=== PATIENT | male | born 1945 | race Caucasian/White ===

== ENCOUNTER → 2016-08-31 | Outpatient (CLI) | payer MEDICARE, MEDICAID ==
--- NOTE | 2016-09-03 08:05 | MRI ---
EXAM DESCRIPTION: MR ABDOMEN WITHOUT IV CONTRAST CLINICAL HISTORY: 71 y/o M, CHOLECYSTIS COMPARISON: CT performed on February 09, 2016 TECHNIQUE: Multiplanar multisequence images of the abdomen were obtained without gadolinium contrast including MRCP images and 3D reconstructed series. FINDINGS: There is a small gallstone in the neck of the gallbladder without pericholecystic fluid or inflammation. There is no choledocholithiasis. No intra or extrahepatic biliary duct dilation. The cystic duct is not dilated. The pancreatic duct is unremarkable. There is no peripancreatic fluid or pancreatic mass. The left kidney is not identified and is either developmentally or surgically absent. There is no pleural effusion or ascites. No adrenal nodule. The spleen is not enlarged. No focal liver lesion. IMPRESSION: Cholelithiasis, but no choledocholithiasis, biliary duct dilation, ascites or additional abnormality related to provided history of cholecystitis. Electronically signed by: Ozzy Casiano DO 09/03/2016 08:04
== END ==
LOC: MRI 14:06
PROVIDERS: ATTEND Orthopaedic Surgery
DX: K81.1 Chronic cholecystitis (principal)

== ENCOUNTER → 2016-09-19 | Outpatient (CLI) | payer MEDICARE, MEDICAID ==
--- NOTE | 2016-09-19 12:33 | CT ---
EXAM DESCRIPTION: Abdoment/Pelvis w/o Contrast CLINICAL HISTORY: ABDOMINAL PAIN COMPARISON: None. TECHNIQUE: CT of the abdomen and pelvis was performed . Multiple axial images and multiplanar reconstructions were generated. FINDINGS: Lung bases are clear. Multilevel degenerative change of the lumbar spine. Old superior endplate fracture of L1. Cholelithiasis again noted. Calcified lymph nodes noted within the region of the common bile duct. The liver is normal in density. The liver is normal in size. The spleen is unremarkable. Patient is again status post left nephrectomy. No recurrence within the surgical bed. Bilateral adrenal glands and the right kidney are unremarkable. The pancreas is unremarkable. Small bowel is nonobstructed. Diverticulosis is noted. Prostatomegaly is unchanged. Urinary bladder is grossly unremarkable. The appendix is normal. IMPRESSION: 1. There may be stones noted within the cystic duct of the gallbladder which could result in right upper quadrant pain. At this time there is no CT evidence of acute cholecystitis. 2. Patient is once again status post left nephrectomy. No evidence of recurrence within the surgical bed. 3. Remaining study is unchanged. Electronically signed by: Brian Whitney MD 09/19/2016 12:32 PM CDT
--- NOTE | 2016-09-19 12:34 | RAD ---
EXAM DESCRIPTION: Chest,2 Views CLINICAL HISTORY: 71 yearsMale, SOB COMPARISON: May 2011 IMPRESSION: Heart size and pulmonary vascularity are within normal limits. There is no airspace consolidation, pleural effusion, or pneumothorax. No acute osseous abnormality. Electronically signed by: Brian Whitney MD 09/19/2016 12:32 PM CDT
== END | disposition home or self-care (01) ==
LOC: CT 09:15
PROVIDERS: ATTEND Internal Medicine Hematology & Oncology
DX: D75.1 Secondary polycythemia (principal); R10.31 Right lower quadrant pain

== ENCOUNTER → 2016-10-16 | Outpatient (CLI) | payer MEDICARE, MEDICAID ==
--- NOTE | 2016-10-16 16:44 | CT ---
EXAM DESCRIPTION: Abdomen/Pelvis w/Contrast CLINICAL HISTORY: ABDOMINAL PAIN COMPARISON: 09/19/2016 TECHNIQUE: CT of the abdomen and pelvis was performed following intravenous contrast. Multiple axial images and multiplanar reconstructions were generated. FINDINGS: Lung bases: The visualized lung bases are clear. Solid organs: Operative changes of a left nephrectomy are again demonstrated. Cholelithiasis. Right upper quadrant calcifications are again demonstrated, and likely represent calcified nodes. There may also be calculi within the cystic duct. No overt CT evidence for acute cholecystitis. The spleen, pancreas, right kidney, and adrenal glands are unremarkable. Gastrointestinal: The stomach and small intestine are normal. Extensive colonic diverticulosis is present without CT evidence for diverticulitis. The appendix is normal. No free fluid or free air. Vascular: Mild calcific plaque in the abdominal aorta and its major branches. Lymph nodes: No pathologically enlarged lymph nodes are present by CT size criteria. Several scattered mesenteric and retroperitoneal nodes are again demonstrated which remain less than 1 cm in short axis. Musculoskeletal and soft tissues: No destructive osseous lesions are present. Remote fracture of L1 is again demonstrated. Urinary bladder and pelvic organs: The urinary bladder is normal. The prostate remains enlarged. IMPRESSION: 1. No acute abdominal or pelvic CT findings. 2. Cholelithiasis with questionable calculus in the cystic duct. If there is concern for cholecystitis, right upper quadrant ultrasound could further evaluate. 3. Extensive colonic diverticulosis without CT evidence for diverticulitis. 4. Left nephrectomy changes. 5. Other stable findings as above. Electronically signed by: Ham Bardales MD 10/16/2016 4:44 PM CDT
== END | disposition home or self-care (01) ==
LOC: CT 10:18
DX: K80.20 Calculus of gallbladder without cholecystitis without obstruction (principal); K57.30 Diverticulosis of large intestine without perforation or abscess without bleeding

== ENCOUNTER → 2017-09-05 | Outpatient (CLI) | payer MEDICARE, MEDICAID ==
--- NOTE | 2017-09-05 10:00 | RAD ---
EXAM: Knee,Right Complete HISTORY: KNEE PAIN COMPARISON: Radiographs from October 16, 2013 TECHNIQUE: Three radiographic views of knee FINDINGS: Unremarkable bony alignment in the knee joint. No acute fracture nor dislocation nor inflammatory bony erosion. Slightly pronounced degenerative narrowing of medial compartment is unchanged since prior study. No suprapatellar effusion or other soft tissue abnormality around the joint. IMPRESSION: No bony injury identified in right knee. Degenerative changes in the medial knee compartment. Electronically signed by: Bello Brambila MD 09/05/2017 9:59 AM [facility]
--- NOTE | 2017-09-05 10:01 | RAD ---
EXAM DESCRIPTION: Pelvis CLINICAL HISTORY: Hip pain COMPARISON: None TECHNIQUE: Frontal view of pelvis FINDINGS: Bony cortices in pelvis and both hip joints are maintained without focal dehiscence nor fracture. No bony dislocation in either hip joint. Femoral head contour is maintained without collapse nor changes of avascular necrosis in either hip. No soft tissue abnormality clearly identified around either hip joint. Nonobstructive bowel gas pattern in lower abdomen and in pelvis. IMPRESSION: No obvious bony injury in the pelvis nor in either hip joint. Electronically signed by: Bello Brambila MD 09/05/2017 10:00 AM [facility]
== END ==
LOC: RAD 09:10
PROVIDERS: ATTEND Orthopaedic Surgery
DX: M25.561 Pain in right knee (principal); M25.551 Pain in right hip; Z01.818 Encounter for other preprocedural examination

== ENCOUNTER 2017-10-22 05:44 | Inpatient (IN) | payer MEDICARE, MEDICAID ==
--- NOTE | 2017-09-28 13:27 | HP ---
CHIEF COMPLAINT: Right knee pain. HISTORY OF PRESENT ILLNESS: Mr. Rubio has had knee pain for a very long period and has failed conservative measures. He has had partial knee replacement on the left and is requesting that we consider that on the right. Mr. Rubio has had difficulty with his activities of daily living and he has failed conservative measures which have included injections and physical therapy. He walks with an antalgic gait and has to occasionally use assistive devices. Because of his ongoing pain and failure of conservative measures, and its effect on his daily life which is limited from baseline, he has requested operative intervention. After discussing the risks, benefits, and alternatives to that he has given informed consent for that. PAST SURGICAL HISTORY: 1. Nephrectomy. 2. Herniorrhaphy. 3. Bilateral hand surgery. CURRENT MEDICATIONS: 1. Aspirin. 2. Ondansetron. 3. Zolpidem. 4. Gabapentin. 5. Hydrocodone. 6. Furosemide. 7. Spironolactone. 8. Nitroglycerin. 9. Pravastatin. 10. ProAir. 11. Clonazepam. 12. Clonidine. 13. Multivitamins. 14. Doxycycline. ALLERGIES: NO KNOWN DRUG ALLERGIES. CODE STATUS: DO NOT RESUSCITATE. IMMUNIZATIONS: Up to date. FAMILY HISTORY: None pertinent to today's complaints. SOCIAL HISTORY: He does not drink, smoke or use any illicit drugs. REVIEW OF SYSTEMS: Negative except as indicated in the History of Present Illness. PHYSICAL EXAMINATION: VITAL SIGNS: Blood pressure 107/75, pulse 74. Height 5' 8", weight 206. MENTAL STATUS: The patient is awake, alert, and is able to give a good history and participate in the physical. The patient is oriented to person, place and time. SKIN: Normal tone and turgor. HEENT: Normocephalic, atraumatic. Pupils equal, round and reactive. Mucosal membranes are moist. NECK: Normal range of motion. No thyromegaly, no lymphadenopathy. CHEST: Normal respiratory excursion. CARDIAC: Regular rate and rhythm. No murmurs, rubs or gallops. MUSCULOSKELETAL: The bilateral upper extremities show full active range of motion. He has intact sensation and they are warm and well perfused. There is no crepitus. Strength is 5/5. He has no deformities. The left lower extremity shows full range of motion in the hip. He has a well- healed wound on the anteromedial aspect of the knee. He does maintain full extension with flexion to about 120 degrees. There is no swelling. Strength is 5/5. The right lower extremity shows full range of motion in the hip. He has full extension of the knee in flexion to about 120 degrees, but he has crepitus and severe pain. He does have obvious varus deformity. He has minor effusion. Sensation is intact. He does not have any distinct varus, valgus, anterior or posterior laxity. He does walk with an antalgic gait secondary to discomfort on the right side. X-RAYS: X-rays show advanced arthritis. ASSESSMENT: 1. Arthritis. PLAN: The plan at this point is for total knee arthroplasty. Mr. Rubio has failed conservative measures and has requested operative intervention. After discussing the risks, benefits, and alternatives to that, he has given informed consent for that. #[id number] [facility]
[2017-10-22] MEDS ORDERED: LACTATED RINGERS 1,000 ML ONE ×2 (05:58→06:34)
[2017-10-22] MEDS ORDERED: SODIUM CHL 0.9% 100ML MINI-BAG 100 ML IVPB ONE (05:58)
[2017-10-22] MEDS ORDERED: VANCOMYCIN HCL INJ 1,000 MG VIAL IVPB ONE ×4 (05:59→17:26)
[2017-10-22] MEDS ORDERED: ceFAZolin SODIUM 1 GM VIAL ONE ×2 (05:59→06:43)
[2017-10-22] MEDS ORDERED: TRANEXAMIC ACID 1,000 MG/10 ML VIAL ONE ×2 (05:59→08:05)
[2017-10-22] MEDS ORDERED: SODIUM CHLORIDE 0.9% 250ML 250 ML ONE ×2 (05:59→17:26)
[2017-10-22] MEDS ORDERED: fentaNYL CITRATE INJ 50 MCG/ML AMP ONE ×2 (06:34→10:41)
[2017-10-22] MEDS ORDERED: BUPIVACAINE 0.25% W/EPI 50 ML VIAL INJ ONE (06:42)
[2017-10-22] MEDS ORDERED: MORPHINE SULFATE *EPIDURAL* 0.5 MG/ML VIAL ONE (06:44)
[2017-10-22] MEDS ORDERED: SODIUM CHLORIDE 0.9% (FLUSH) 10 ML SYG IV PRN (06:47)
[2017-10-22] MEDS ORDERED: MORPHINE SULFATE INJ 10 MG/ML VIAL IM PRN (06:47)
[2017-10-22] MEDS ORDERED: ONDANSETRON INJ 4 MG/2 ML VIAL IV PRN (06:47)
[2017-10-22] MEDS ORDERED: ACETAMINOPHEN 325 MG TAB PO PRN (06:47)
[2017-10-22] MEDS ORDERED: traMADol HCL 50 MG TAB PO PRN (06:47)
[2017-10-22] MEDS ORDERED: NALOXONE HCL INJ 0.4 MG/ML VIAL IV PRN (06:47)
[2017-10-22] MEDS ORDERED: MAGNESIUM HYDROXIDE 30 ML UD PO PRN (06:47)
[2017-10-22] MEDS ORDERED: BENZOCAINE-MENTH LOZ (CEPACOL) 1 EA LOZ MT PRN (06:47)
[2017-10-22] MEDS ORDERED: ALUMINUM & MAGNESIUM HYDROXIDE 30 ML UD PO PRN (06:47)
[2017-10-22] MEDS ORDERED: TRANEXAMIC ACID 1,000 MG/10 ML VIAL IV ONE (06:47)
[2017-10-22] MEDS ORDERED: ZOLPIDEM TARTRATE 5 MG TAB PO PRN (06:47)
[2017-10-22] MEDS ORDERED: MORPHINE SULFATE INJ 10 MG/ML VIAL IV PRN (06:47)
[2017-10-22] MEDS ORDERED: PROMETHAZINE HCL INJ 25 MG in SODIUM CHLORIDE 0.9% 50ML 50 ML IVPB PRN (06:47)
[2017-10-22] MEDS ORDERED: PROMETHAZINE HCL INJ 12.5 MG in SODIUM CHLORIDE 0.9% 50ML 50 ML IVPB PRN (06:47)
[2017-10-22] MEDS ORDERED: TRANEXAMIC ACID INJ 1,000 MG in SODIUM CHLORIDE 0.9% 100ML 100 ML IVPB ONE (06:47)
[2017-10-22] MEDS ORDERED: ACETAMINOPHEN 500 MG TAB PO PRN ×2 (06:47→22:33)
[2017-10-22] MEDS ORDERED: BISACODYL SUPPOSITORY 10 MG PR PRN (06:47)
[2017-10-22] MEDS ORDERED: TEMAZEPAM 15 MG CAP PO PRN (06:47)
[2017-10-22] MEDS ORDERED: MORPHINE PCA 1 MG/ML 100 ML BAG IVPB SCH (07:00)
[2017-10-22] MEDS ORDERED: SODIUM CHLORIDE 0.9% 100ML 100 ML IVPB ONE (08:06)
[2017-10-22] MEDS ORDERED: PROPOFOL 200 MG/20 ML VIAL IV ONE (10:00)
[2017-10-22] MEDS ORDERED: MORPHINE SULFATE INJ 10 MG/ML VIAL IV ONE (10:25)
--- NOTE | 2017-10-22 11:41 | RAD ---
EXAM DESCRIPTION: Knee,Right 2 or More Views CLINICAL HISTORY: 72 years, Male, TKA COMPARISON: None TECHNIQUE: 2 views of the right knee FINDINGS: No fracture or dislocation. Total right knee arthroplasty is noted with air in the soft tissues and joint space. No complicating fracture. Lateral view shows normal position of the patella. No patellar spurring or enthesopathy. IMPRESSION: Total right knee arthroplasty with no complicating fracture. Electronically signed by: William Hutton MD 10/22/2017 11:39 AM CDT
[2017-10-22] MEDS: IV SET AND CAP CHANGE INJ INJ SCH (12:17)
[2017-10-22] MEDS: CELECOXIB 100 MG CAP PO SCH (12:19)
[2017-10-22] MEDS: MAGNESIUM OXIDE 400 MG TAB PO SCH (12:20)
[2017-10-22] MEDS: DEX 5% W/NACL 0.45% 1000ML 1,000 ML IVS PRN (14:05)
[2017-10-22] MEDS: HYDROcodone 10MG/APAP 325MG 1 EA TAB PO PRN ×2 (14:06→22:58)
[2017-10-22] MEDS: CYCLOBENZAPRINE HCL 10 MG TAB PO PRN (14:07)
[2017-10-22] MEDS ORDERED: ALBUTEROL SULFATE 2.5 MG/3 ML VIAL NEB PRN (15:36)
[2017-10-22] MEDS ORDERED: ceFAZolin SODIUM 2 GRAMS PREMI 50 ML IVPB ONE ×2 (16:46→20:33)
[2017-10-22] MEDS: ceFAZolin SODIUM 2 GRAMS PREMI 2 GM in PREMIX BAG 1 BAG IVPB SCH ×2 (16:54→23:40)
[2017-10-22] MEDS: GABAPENTIN 300 MG CAP PO SCH ×2 (16:54→21:39)
[2017-10-22] MEDS: VANCOMYCIN HCL INJ 1,000 MG in SODIUM CHLORIDE 0.9% 250ML 250 ML IVPB SCH (17:30)
[2017-10-22] MEDS: ALBUTEROL SULFATE 2.5 MG/3 ML VIAL NEB SCH (21:00)
[2017-10-22] MEDS: PRAVASTATIN SODIUM 20 MG TAB PO SCH (21:39)
[2017-10-22] MEDS: DOCUSATE CALCIUM 240 MG CAP PO SCH (21:39)
[2017-10-22] MEDS: ENOXAPARIN SODIUM 30 MG/0.3 ML SYG SUBCU SCH (21:39)
[2017-10-23] MEDS: HYDROcodone 10MG/APAP 325MG 1 EA TAB PO PRN ×2 (04:01→21:32)
[2017-10-23] MEDS ORDERED: SODIUM CHLORIDE 0.9% 250ML 250 ML ONE (04:12)
[2017-10-23] MEDS ORDERED: VANCOMYCIN HCL INJ 1,000 MG VIAL IVPB ONE (04:12)
[2017-10-23] MEDS: VANCOMYCIN HCL INJ 1,000 MG in SODIUM CHLORIDE 0.9% 250ML 250 ML IVPB SCH (05:49)
[2017-10-23] MEDS ORDERED: ceFAZolin SODIUM 2 GRAMS PREMI 50 ML IVPB ONE (07:49)
[2017-10-23] MEDS: ALBUTEROL SULFATE 2.5 MG/3 ML VIAL NEB SCH ×2 (08:36→20:55)
[2017-10-23] MEDS: GABAPENTIN 300 MG CAP PO SCH ×4 (09:00→21:31)
[2017-10-23] MEDS: hydroCHLOROthiazide 12.5 MG CAP PO SCH (09:00)
[2017-10-23] MEDS: MAGNESIUM OXIDE 400 MG TAB PO SCH (09:00)
[2017-10-23] MEDS: CELECOXIB 100 MG CAP PO SCH (09:01)
[2017-10-23] MEDS: ceFAZolin SODIUM 2 GRAMS PREMI 2 GM in PREMIX BAG 1 BAG IVPB SCH (09:01)
[2017-10-23] MEDS: FUROSEMIDE 40 MG TAB PO SCH (09:01)
[2017-10-23] MEDS: SPIRONOLACTONE 25 MG TAB PO SCH (09:02)
[2017-10-23] MEDS: ENOXAPARIN SODIUM 30 MG/0.3 ML SYG SUBCU SCH ×2 (09:02→21:31)
[2017-10-23] MEDS: TAFLUPROST BOTH_EYES SCH (09:12)
[2017-10-23] MEDS ORDERED: POTASSIUM CHLORIDE 20 MEQ TAB ONE (09:40)
[2017-10-23] MEDS ORDERED: FLUCONAZOLE IV 100 ML IVPB ONE (09:40)
--- NOTE | 2017-10-23 09:42 | PN ---
DATE: 10/22/17 POSTOPERATIVE CHECK SUBJECTIVE: He is doing well and is resting. He has good pain control right now. OBJECTIVE: Afebrile. Vital signs stable. Dressing is clean, dry and intact. ASSESSMENT: Status post total knee arthroplasty. PLAN: The plan at this point is for him to begin weight-bearing as tolerated. We will also begin CPM and progress as tolerated. #[id number] [facility]
[2017-10-23] MEDS: CYCLOBENZAPRINE HCL 10 MG TAB PO PRN (09:46)
[2017-10-23] MEDS: SULFA/TRIMETH 800/160 (DS) TAB 1 EA TAB PO SCH ×2 (09:47→21:31)
--- NOTE | 2017-10-23 09:47 | OP ---
DATE OF PROCEDURE: 10/22/17 PREOPERATIVE DIAGNOSIS: 1. Osteoarthritis of the knee. POSTOPERATIVE DIAGNOSIS: 1. Osteoarthritis of the knee. PROCEDURE: 1. Total knee arthroplasty. SURGEON: Conner Prater MD. DEVICE REPAIR TECHNICIAN: Jostin Mancilla CST, SA-C. ANESTHESIA: General. COMPLICATIONS: None. FINDINGS: Severe osteoarthritis. INDICATION: Mr. Rubio has a long history of knee pain. He has had contralateral unicondylar knee arthroplasty. He has had failure of conservative measures on the right and therefore has requested operative intervention. After discussing the risks, benefits and alternatives to that, the patient has given informed consent for total knee arthroplasty. PROCEDURE: The patient was brought to the Operating Room and placed in supine position. General anesthesia was induced and the patient's leg was sterilely prepped and draped. Following prepping and draping, the distal femur was exposed and using an intramedullary guide, the distal femoral cut was made. The appropriate sized cutting block was measured, pinned into place, and the anterior, posterior, and chamfer cuts were made. The ACL was transected and the tibia was subluxed. Both the medial and lateral menisci were removed. An intramedullary guide was used to make the proximal tibial cut. The appropriate sized base plate was placed and a trial polyethylene was placed. The trial femur was placed, the knee was reduced, and the knee was taken through a range of motion. The knee was stable in anterior, posterior, varus and valgus stress. The patella tracked anatomically without evidence of subluxation or dislocation. After trialing, the trial components were removed and the bony surfaces were thoroughly irrigated with saline. Following irrigation, the surfaces were dried and the final components were cemented into place. The excess cement was removed and the remaining cement was allowed to cure. The knee was again taken through a range of motion to confirm stability. The wound was then irrigated with saline and closure was performed using PDS to approximate the arthrotomy followed by closure of the subcutaneous tissues with a combination of running and interrupted Monocryl sutures. Sterile dressing was placed. The patient was awoken from anesthesia and taken to Recovery. POSTOPERATIVE INSTRUCTIONS: The patient will be weight-bearing as tolerated on postoperative day 1. COMPONENTS: [employer] Triathlon knee, size 6 femur, size 6 tibia, 11 mm insert. #[id number] [facility]
--- NOTE | 2017-10-23 10:23 | RAD ---
EXAM DESCRIPTION: Chest,1 View CLINICAL HISTORY: Fever COMPARISON: None available FINDINGS: The cardiomediastinal silhouette is unremarkable. Subsegmental atelectasis or scarring is noted at both lung bases, but no airspace consolidation or pleural effusion is identified. The bronchovascular markings are within normal limits, and the lungs are not hyperinflated. There is no pneumothorax or acute fracture. IMPRESSION: Bibasilar subsegmental atelectasis or scarring, but no convincing evidence of pneumonia or other intrathoracic abnormality to explain patient symptoms. If symptoms persist or worsen, PA and lateral chest radiograph recommended. Electronically signed by: Ozzy Casiano MD 10/23/2017 10:22 AM CDT
[2017-10-23] MEDS: INSULIN LISPRO 100 UNITS/ML PEN SUBCU SCH (21:00)
[2017-10-23] MEDS: DOCUSATE CALCIUM 240 MG CAP PO SCH (21:31)
[2017-10-23] MEDS: PRAVASTATIN SODIUM 20 MG TAB PO SCH (21:31)
[2017-10-23] MEDS: DEX 5% W/NACL 0.45% 1000ML 1,000 ML IVS PRN (21:32)
[2017-10-23] MEDS ORDERED: GLUCAGON INJ 1 MG VIAL SUBCU PRN (21:33)
[2017-10-23] MEDS ORDERED: DEXTROSE 50% 25 GM/50 ML SYG IV PRN (21:33)
[2017-10-24] MEDS: HYDROcodone 10MG/APAP 325MG 1 EA TAB PO PRN ×4 (02:44→20:59)
[2017-10-24] MEDS: INSULIN LISPRO 100 UNITS/ML PEN SUBCU SCH ×4 (08:15→21:24)
[2017-10-24] MEDS: CELECOXIB 100 MG CAP PO SCH (08:33)
--- NOTE | 2017-10-24 08:37 | CONS ---
SUPERVISING PHYSICIAN: Chris Malik MD DATE OF CONSULTATION: 10/22/17 CHIEF COMPLAINT: Right knee pain. HISTORY OF PRESENT ILLNESS: This is a 72-year-old male patient who has had a long history of complaints of right knee pain. He has had a partial left knee replacement in the past. He has had a very difficult time with his activities of daily living. He failed conservative measures that have included injections and physical therapy. He actually has had problems with his gait and has required assistive devices. Due to his ongoing pain and failed conservative measures, he requested Dr. Conner Prater, orthopedic surgeon, to do a right total knee arthroplasty. Today, I am seeing the patient postoperatively after his right total knee arthroplasty. PAST MEDICAL HISTORY: 1. Diabetes mellitus, type 2. 2. 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 3. Cerebrovascular accident in 2007. 4. Gastroesophageal reflux disease. 5. History of myocardial infarction. PAST SURGICAL HISTORY: 1. Nephrectomy. 2. Herniorrhaphy. 3. Bilateral hand surgery. OUTPATIENT MEDICATIONS: Per the EMR and awaiting verification. ALLERGIES: NO KNOWN DRUG ALLERGIES. SOCIAL HISTORY: The patient quit smoking approximately 10 years ago. He drinks alcoholic beverages on very rare occasion and denies any illicit drug use. He lives in [place]. Dr. Ro is his primary care physician. REVIEW OF SYSTEMS: Negative except as per history of present illness. PHYSICAL EXAMINATION: VITAL SIGNS: Temperature 97.4. Pulse 72. Blood pressure 135/80. Respiratory rate 18. O2 saturation 94% on room air. GENERAL: This is a 72-year-old male who is lying in his hospital bed. He is in no acute distress. HEENT: Normocephalic, atraumatic. Pupils are equal and reactive. Oropharynx is clear. NECK: Supple without mass. RESPIRATORY: Essentially clear to auscultation bilaterally. CHEST: There is equal rise and fall of the chest with inspiration and expiration. CARDIOVASCULAR: Regular rate and rhythm. GASTROINTESTINAL: Abdomen is soft, nondistended, nontender. Bowel sounds are hypoactive. EXTREMITIES: No cyanosis, clubbing or edema. Bilateral pedal pulses are palpable at +2. There is a dressing to his right knee that is dry and intact. He has an Iceman in place. NEUROLOGIC: He is lethargic. He opens his eyes. He answers some simple yes/no questions appropriately. LABORATORY: Preoperative labs show WBC 8.3, hemoglobin 13.8, hematocrit 41.1, platelet count 291. Sodium 134, potassium 4.4, chloride 99, carbon dioxide 25, BUN 28, creatinine 1.11. Glucose 102, serum osmolality 273.9. Urinalysis showed a small amount of urine blood with small amount of urine leukocyte esterase, 5 to 10 urine RBCs and 5 to 10 urine WBCs. All other labs and films have been reviewed via the EMR. ASSESSMENT: 1. Osteoarthritis of the right knee. He has failed conservative measures. He is status post right total knee arthroplasty per Dr. Prater, orthopedic surgeon, postoperative day #0. 2. Hypertension. 3. Diabetes mellitus, type 2. 4. Gastroesophageal reflux disease. PLAN: We will continue present supportive care. Orthopedic issues will be per Dr. Conner Prater, orthopedic surgeon. He will start his physical therapy tomorrow. I have resumed his home medications. I will encourage good pulmonary hygiene including incentive spirometry. We will continue to monitor the patient closely and follow as needed. #[id number] [facility]
--- NOTE | 2017-10-24 09:23 | PN ---
SUPERVISING PHYSICIAN: Chris Malik MD DATE: 10/23/17 SUBJECTIVE: The patient is lying in his hospital bed. He is somewhat lethargic. He does open his eyes and answers some simple questions. He denies any nausea, vomiting, diarrhea or chest pain. He complains of his right leg hurting. OBJECTIVE: VITAL SIGNS: T-max 24 hours 101.3. Pulse rate got as high as 99, it is now 86. Blood pressure 124/86. Respiratory rate 20. O2 saturation 94% on room air. RESPIRATORY: Essentially clear to auscultation bilaterally, somewhat diminished at the bases. CARDIAC: Regular rate and rhythm. GASTROINTESTINAL: Abdomen is soft, nondistended, nontender. Bowel sounds are positive. EXTREMITIES: No cyanosis, clubbing or edema. Bilateral pedal pulses are palpable at +2. Dressing to his right knee is dry and intact. His right leg is in the CPM machine. NEUROLOGIC: He is slightly lethargic. He opens his eyes and answers questions appropriately, but goes back to sleep quickly. LABORATORY: Hemoglobin 12.9, hematocrit 38.5. Blood sugars have run between 122 and 131. Urine culture is pending. Preliminary blood cultures are negative to date. Influenza A and B flu swab by PCR are both negative. Chest x -ray per radiologic interpretation shows bibasilar subsegmental atelectasis or scarring, but no convincing evidence of pneumonia or other intrathoracic abnormality to explain the patient's symptoms. All other labs and films have been reviewed via the EMR. ASSESSMENT: 1. Osteoarthritis of the right knee, failed conservative measures, status post right total knee arthroplasty per Dr. Prater, orthopedic surgeon, postoperative day #1. 2. Question urinary tract infection. Urine cultures pending. 3. Elevated temperature, may be due to atelectasis due to the patient's poor compliance postoperatively, but cannot rule out urinary tract infection as a possible source of fever. 4. Hypertension. 5. Diabetes mellitus, type 2. 6. Gastroesophageal reflux disease. PLAN: We will continue present supportive care. Orthopedic issues will be per Dr. Prater. He is participating in physical therapy although at very slow pace at this time. He is very lethargic and we will need to monitor that close. I have ordered Respiratory to continue with aggressive pulmonary hygiene. I have also ordered accuchecks with sliding scale due to his diabetes. We will monitor his cultures closely. We will continue to monitor the patient closely and follow as needed. Dr. Malik is the collaborating physician and available for consultation. #[id number] [facility]
[2017-10-24] MEDS: FUROSEMIDE 40 MG TAB PO SCH (10:04)
[2017-10-24] MEDS: ENOXAPARIN SODIUM 30 MG/0.3 ML SYG SUBCU SCH ×2 (10:04→21:12)
[2017-10-24] MEDS: CYCLOBENZAPRINE HCL 10 MG TAB PO PRN ×2 (10:05→22:08)
[2017-10-24] MEDS: SPIRONOLACTONE 25 MG TAB PO SCH (10:05)
[2017-10-24] MEDS: SULFA/TRIMETH 800/160 (DS) TAB 1 EA TAB PO SCH ×2 (10:05→21:12)
[2017-10-24] MEDS: MAGNESIUM OXIDE 400 MG TAB PO SCH (10:05)
[2017-10-24] MEDS: hydroCHLOROthiazide 12.5 MG CAP PO SCH (10:06)
[2017-10-24] MEDS: GABAPENTIN 300 MG CAP PO SCH ×4 (10:06→20:59)
[2017-10-24] MEDS: SODIUM CHLORIDE 0.9% (FLUSH) 10 ML SYG IV SCH ×2 (10:07→21:01)
[2017-10-24] MEDS: ALBUTEROL SULFATE 2.5 MG/3 ML VIAL NEB SCH ×2 (10:20→19:39)
[2017-10-24] MEDS: TAFLUPROST BOTH_EYES SCH (10:54)
--- NOTE | 2017-10-24 13:18 | PN ---
DATE: 10/23/17 SUBJECTIVE: Mr. Rubio is doing well. He has a little bit of difficulty with pain control as he is chronic narcotic from a pain management physician. Otherwise, he has no complaints. OBJECTIVE: Afebrile. Vital signs stable. Dressing is clean, dry and intact. ASSESSMENT: Status post total knee arthroplasty. PLAN: He will continue with physical therapy for weight-bearing as tolerated. [facility][id number] [facility]
--- NOTE | 2017-10-24 13:19 | PN ---
DATE: 10/24/17 SUBJECTIVE: Mr. Rubio is doing well. He has no acute complaints. OBJECTIVE: Afebrile. Vital signs stable. Wound is clean. There are no signs or symptoms of infection. ASSESSMENT: Status post total knee arthroplasty. PLAN: He will continue with weight-bearing as tolerated. [facility][id number] [facility]
[2017-10-24] MEDS: PRAVASTATIN SODIUM 20 MG TAB PO SCH (21:00)
[2017-10-24] MEDS: DOCUSATE CALCIUM 240 MG CAP PO SCH (21:00)
[2017-10-25] MEDS ORDERED: PANTOPRAZOLE SODIUM TAB 40 MG PO ONE (04:36)
[2017-10-25] MEDS: HYDROcodone 10MG/APAP 325MG 1 EA TAB PO PRN ×3 (06:20→15:22)
[2017-10-25] MEDS: CYCLOBENZAPRINE HCL 10 MG TAB PO PRN ×2 (06:21→14:41)
[2017-10-25] MEDS: INSULIN LISPRO 100 UNITS/ML PEN SUBCU SCH ×3 (07:30→17:00)
--- NOTE | 2017-10-25 08:09 | PN ---
DATE: 10/24/17 SUPERVISING PHYSICIAN: Chris Malik MD SUBJECTIVE: The patient is lying in his hospital bed. No complaints of nausea , vomiting, diarrhea or constipation. Has some pain in his right knee but it has improved since yesterday. The patient inadvertently had a CT scan of the abdomen and pelvis that showed a gallstone in the cystic duct. He did say he had some pain occasionally in that right upper quadrant and he has a history of gallstones. He agreed to see Dr. Martin tomorrow. OBJECTIVE: Vital Signs: Temperature 98.1, heart rate 100, blood pressure 127/ 71, respiratory rate 20, 02 saturation 9% on two liters nasal cannula. CHEST: Essentially clear to auscultation bilaterally. CARDIAC: Regular rate and rhythm. GI: Abdomen soft. He is slightly tender to the right upper quadrant. There is no rebound tenderness or guarding. Bowel sounds are positive. EXTREMITIES: Dressing to his right knee is dry and intact. There is some slightly erythema to the right knee but there is no swelling. Bilateral pedal pulses are palpable +2. NEURO: He is awake, alert, and oriented x3. LABORATORY: Hemoglobin 12.9 with hematocrit 38.5. Blood sugars have run from between 131 and 149. His preliminary blood cultures show no growth after 24 hours. Preliminary urine cultures show no growth after 24 hours. All other labs and films have been reviewed via the EMR. RADIOLOGY: A CT scan on the patient was done inadvertently and the report is not available at this time but per radiologist report, the patient does have a gallstone in the cystic duct as well as some prostatitis and thickened wall of the bladder. Will review report once available. ASSESSMENT: 1. Osteoarthritis of the right knee, failed conservative measures, status post right total knee arthroplasty per Dr. Conner Prater, orthopedic surgeon, postoperative day #2. 2. Urinary tract infection. Urine cultures pending. 3. Elevated temperature, may be due to atelectasis but cannot rule out urinary tract infection as a possible source of fever. 4. Cholelithiasis. 5. Hypertension. 6. Diabetes mellitus, type 2. 7. Gastroesophageal reflux disease. PLAN: We will continue present supportive care. Orthopedic issues will be per Dr. Prater. He will continue with physical therapy for strengthening and conditioning. I continued to encourage good pulmonary hygiene. Discussed his CT results as they were reported to me and he is aware of his enlarged prostate as well as his history of gallstones. He would very much like to see Dr. Martin so I have made patient n.p.o. for in the morning. He with have a gallbladder ultrasound. I will also call Dr. Marin Ro, his primary care physician with results of his CT scan once they are available so he can have close followup. It is to be noted that this CT scan was done inadvertently and the patient should not be charged for the CT scan. We will continue to monitor the patient closely and follow as needed. Dr. Malik is the collaborating physician available for consultation. [facility][id number] [facility]
[2017-10-25] MEDS: ALBUTEROL SULFATE 2.5 MG/3 ML VIAL NEB SCH ×2 (08:11→20:30)
--- NOTE | 2017-10-25 08:21 | RAD ---
EXAM DESCRIPTION: Abdomen Flat Upright CLINICAL HISTORY: abd pain COMPARISON: March 18, 2014 FINDINGS: AP supine and upright views of the abdomen show a nonspecific, nonobstructive bowel gas pattern with no evidence for free intraperitoneal air. No air-filled dilated loops of small bowel are seen. No significant air-fluid levels are identified. Air-filled mildly dilated transverse to descending and sigmoid colon is seen without obvious bowel wall thickening. There are surgical clips in the left midabdomen. No obvious organomegaly is seen. There are 2 less than 5 mm calcifications projecting over the right 12th rib could represent vascular calcifications versus calcifications in the cystic duct the gallbladder seen on previous CT scan. The visualized lung bases show no acute findings. IMPRESSION: Nonspecific abdominal series. Nonspecific air-filled colon is noted. Electronically signed by: Bijan Lainez MD 10/25/2017 8:19 AM CDT
[2017-10-25] MEDS: GABAPENTIN 300 MG CAP PO SCH ×4 (09:56→20:46)
[2017-10-25] MEDS: FUROSEMIDE 40 MG TAB PO SCH (09:56)
[2017-10-25] MEDS: SPIRONOLACTONE 25 MG TAB PO SCH (09:56)
[2017-10-25] MEDS: SULFA/TRIMETH 800/160 (DS) TAB 1 EA TAB PO SCH ×2 (09:56→20:46)
[2017-10-25] MEDS: MAGNESIUM OXIDE 400 MG TAB PO SCH (09:57)
[2017-10-25] MEDS: CELECOXIB 100 MG CAP PO SCH (09:57)
[2017-10-25] MEDS: ENOXAPARIN SODIUM 30 MG/0.3 ML SYG SUBCU SCH ×2 (09:57→20:55)
[2017-10-25] MEDS: SODIUM CHLORIDE 0.9% (FLUSH) 10 ML SYG IV SCH ×2 (09:58→20:47)
[2017-10-25] MEDS: IV SET AND CAP CHANGE INJ INJ SCH (09:58)
[2017-10-25] MEDS: TAFLUPROST BOTH_EYES SCH (10:00)
--- NOTE | 2017-10-25 10:59 | CONS ---
REFERRING PHYSICIAN: Hospital service. HISTORY OF PRESENT ILLNESS: Mr. Rubio is now 3 days status post a right total knee replacement and CT scan of his abdomen and chest were obtained. This revealed gallstones that appear to possibly be in the neck of the gallbladder. He has known that he had stones in the past. There is no history of hepatitis or jaundice. He does have not significant discomfort or nausea with eating postoperatively. PAST MEDICAL HISTORY: PAST SURGICAL HISTORY: 1. Left total knee arthroplasty. 2. Nephrectomy. 3. Hernia repairs, both in the groin and the umbilicus. 4. Hand surgery. CURRENT MEDICATIONS: 1. Aspirin. 2. Zolpidem. 3. Gabapentin. 4. Hydrocodone. 5. Furosemide. 6. Spironolactone. 7. Nitroglycerin. 8. Pravastatin. 9. ProAir. 10. Clonazepam. 11. Clonidine. 12. Doxycycline. ALLERGIES: NO KNOWN DRUG ALLERGIES. CODE STATUS: Do Not Resuscitate. SOCIAL HISTORY: He does not drink or smoke. He is retired. REVIEW OF SYSTEMS: Noncontributory except for his orthopedic symptoms. PHYSICAL EXAMINATION: VITAL SIGNS: The patient is currently afebrile, normotensive. HEENT: Sclerae nonicteric. Mucous membranes moist. NECK: Without adenopathy. ABDOMEN: Soft, distended, minimally tender, more in the right lower quadrant than the right upper quadrant. EXTREMITIES: Right lower extremity dressing is intact with a small dot of drainage. LABORATORY: White count 8,000 this morning with 60% neutrophils, hemoglobin 13.7, platelet count 208,000. Chemistries reveal normal liver function testing today, potassium 3.9, creatinine 1.29, blood sugars all less than 200. CT scan , as noted, revealed the status post nephrectomy and gallstones. There is no comment on any of his hernia repair. This will be reviewed at some point. ASSESSMENT: 1. Status post right total knee arthroplasty. 2. Cholelithiasis without obvious symptoms. No sign of obstruction or infectious process. RECOMMENDATION: I would place the patient on a low-fat, diabetic diet and for me to see the patient as an outpatient after his rehabilitation to consider elective cholecystectomy. #[id number] [facility]
--- NOTE | 2017-10-25 11:08 | CT ---
EXAM DESCRIPTION: Abdoment/Pelvis w/o Contrast (accession [id number]), Chest w/o Contrast (accession [id number]) CLINICAL HISTORY: gallstones abdominal pain COMPARISON: CT abdomen pelvis October 16, 2016 TECHNIQUE: Noncontrast transaxial CT images of the chest, abdomen, and pelvis are obtained. This exam was performed according to our departmental dose-optimization program, which includes automated exposure control, adjustment of the mA and/or kV according to patient size and/or use of iterative reconstruction technique . FINDINGS: CT chest: Moderate coronary artery calcifications are seen. Moderate scattered calcified plaque of the thoracic aorta is noted. Mild mucus seen in the left aspect of the upper trachea. The trachea is taller than wide. Scattered calcified lymph nodes in the mediastinal and hilar region are seen measuring less than 1 cm. No pleural or pericardial effusion is seen. Lungs are normally aerated without acute appearing infiltrate or consolidation. Several calcified pulmonary nodules are seen. The osseous structures show no aggressive bony lesions. Remote appearing left-sided healed rib fractures are seen. Moderate disc degenerative changes of the thoracic spine are seen with hypertrophic anterior bridging marginal endplate osteophytes over multiple levels of the lower thoracic spine suggesting diffuse idiopathic skeletal hyperostosis. CT abdomen pelvis: Given the limitations of a noncontrast exam the liver, spleen, pancreas, and adrenal glands are unremarkable. There is an irregular calcified gallstone measuring 12 mm in the lower gallbladder fundus. The calcifications seen in the shyam hepatis region do not appear to be within the cystic duct on coronal reconstructed images and could represent chain of calcified lymph nodes or vascular calcifications. There are small less than 1 cm partly calcified lymph nodes in the epigastric and shyam hepatis region. The largest noncalcified lymph node measures 11 mm near the stomach. Moderate atherosclerotic disease. The solitary right kidney shows no nephrolithiasis or ureteral obstruction. There are surgical clips from left nephrectomy. Scattered less than 1 cm retroperitoneal lymph nodes in the abdomen and pelvis are seen. Prostate is enlarged measuring 5.1 x 5.9 cm. There is a focus of low attenuation in the superior right prostate measuring 14 mm. Small amount of air in the urinary bladder could be iatrogenic. Correlate clinically. Appendix is unremarkable. Stomach is unremarkable. No small bowel obstruction or bowel wall thickening is seen. Transverse colon is mostly air-filled. Moderate scattered diverticuli of the descending to sigmoid colon without associated inflammatory changes or fluid collections are seen. No free intraperitoneal air or abnormal drainable abdominal fluid collections are seen. Osseous structures show no aggressive bony lesions. Remote compression fracture deformity of L1 is seen. IMPRESSION: Evidence of old granulomatous disease with probable calcified lymph nodes in the right upper quadrant rather than cystic duct calcifications. Cholelithiasis without evidence of gallbladder wall thickening or surrounding inflammation. Colon diverticulosis without CT evidence of diverticulitis. Enlarged prostate with hypodense area in the superior right aspect. Correlate with physical exam findings and PSA. Small amount of air in the urinary bladder. Correlate with any recent catheterization or procedure. Other findings as described in body of the report. Electronically signed by: Bijan Lainez MD 10/25/2017 11:07 AM CDT
[2017-10-25] MEDS ORDERED: ONDANSETRON 4 MG TAB PO PRN (15:03)
--- NOTE | 2017-10-25 17:03 | PN ---
DATE: 10/25/17 SUPERVISING PHYSICIAN: Chris Malik M.D. SUBJECTIVE: The patient is sitting up in his chair in his hospital room. He has no complaints of nausea, vomiting, diarrhea or constipation. Feels like he is progressing well. OBJECTIVE: VITAL SIGNS: He is afebrile, heart rate 89, blood pressure 116/77, respiratory rate 20, O2 sat is 94% on room air. RESPIRATORY: Essentially clear to auscultation bilaterally. CARDIAC: Regular rate and rhythm. GASTROINTESTINAL: Abdomen is soft, nondistended, non-tender. Bowel sounds are positive. EXTREMITIES: The dressing to his right knee is dry and intact. There is some slight erythema to the knee but there is no swelling or warmth. NEUROLOGIC: He is awake, alert and oriented times three. LABORATORY: WBCs are 8 with hemoglobin 13.7, hematocrit 40.1, neutrophils 60.2. Blood sugars have run between 130 and 212. Sodium is slightly low at 131 , potassium 3.9, chloride 95, carbon dioxide 25, BUN 19, creatinine 1.29. Final urine culture shows no growth after 48 hours. Preliminary blood cultures show no growth after 48 hours. All other labs and films have been reviewed via the EMR. ASSESSMENT: 1. Osteoarthritis of the right knee, failed conservative measures, status post right total knee arthroplasty per Dr. Conner Prater, orthopedic surgeon, postoperative day #2. 2. Urinary tract infection. Urine cultures pending. 3. Elevated temperature, may be due to atelectasis but cannot rule out urinary tract infection as a possible source of fever. 4. Cholelithiasis. 5. Hypertension. 6. Diabetes mellitus, type 2. 7. Gastroesophageal reflux disease. PLAN: We will continue present supportive care. Orthopedic issues will be per Dr. Prater. The patient will continue with physical therapy for strengthening and conditioning. We have continued to encourage good pulmonary hygiene. Dr. Martin has seen the patient today in regards to his gallbladder. I called his primary care physician, Dr. Marin Ro in [place], and we discussed the results of his CT scan. I have faxed the results of his CT scan to Dr. Ro and he has a followup appointment with him on November 05, and will address those issues. I will repeat his BMP in the morning to check his sodium. He may have to go on fluid restrictions. I have also put him on a low fat diet at the request of Dr. Martin. We will monitor him closely and follow as needed. Dr. Malik is the collaborating physician available for consultation. #[id number] and [id number] [facility]
[2017-10-25] MEDS: PRAVASTATIN SODIUM 20 MG TAB PO SCH (20:46)
[2017-10-25] MEDS: DOCUSATE CALCIUM 240 MG CAP PO SCH (20:46)
[2017-10-25] MEDS ORDERED: MAGNESIUM HYDROXIDE 30 ML UD PO ONE (21:00)
[2017-10-25] MEDS ORDERED: BISACODYL SUPPOSITORY 10 MG PR ONE (21:00)
[2017-10-26] MEDS: INSULIN LISPRO 100 UNITS/ML PEN SUBCU SCH ×2 (00:22→07:45)
[2017-10-26] MEDS: HYDROcodone 10MG/APAP 325MG 1 EA TAB PO PRN ×4 (00:32→16:00)
[2017-10-26] MEDS: ALBUTEROL SULFATE 2.5 MG/3 ML VIAL NEB SCH (07:30)
[2017-10-26] MEDS: CELECOXIB 100 MG CAP PO SCH (07:55)
[2017-10-26] MEDS ORDERED: TAFLUPROST TOP SCH (09:00)
[2017-10-26] MEDS: SULFA/TRIMETH 800/160 (DS) TAB 1 EA TAB PO SCH (09:45)
[2017-10-26] MEDS: MAGNESIUM OXIDE 400 MG TAB PO SCH (09:45)
[2017-10-26] MEDS: SPIRONOLACTONE 25 MG TAB PO SCH (09:45)
[2017-10-26] MEDS: GABAPENTIN 300 MG CAP PO SCH ×2 (09:45→14:00)
[2017-10-26] MEDS: FUROSEMIDE 40 MG TAB PO SCH (09:45)
[2017-10-26] MEDS: SODIUM CHLORIDE 0.9% (FLUSH) 10 ML SYG IV SCH (09:46)
[2017-10-26] MEDS: ENOXAPARIN SODIUM 30 MG/0.3 ML SYG SUBCU SCH (09:47)
--- NOTE | 2017-10-26 13:46 | PN ---
DATE: 10/25/17 SUBJECTIVE: Armando is doing well and he is resting right now without significant pain. OBJECTIVE: He is afebrile. Vital signs are stable. Wound is clean and dry without signs or symptoms of infection. ASSESSMENT: 1. Status post total knee arthroplasty. PLAN: The plan at this point is to continue on with weightbearing as tolerated. He will be discharged when he meets discharge criteria. #[id number] [facility]
[2017-10-26 17:09] VITALS: BP 126/81; TEMP 98.3; O2SAT 95
--- NOTE | 2017-10-27 21:29 | DS ---
SUPERVISING PHYSICIAN: Chris Malik M.D. DISCHARGE DIAGNOSIS: 1. Osteoarthritis of the right knee having failed outpatient conservative measures now status post right total knee arthroplasty, postoperative day #3 with the surgery performed by Dr. Conner Prater, orthopedic surgeon. 2. Urinary tract infection with urine cultures pending. 3. Cholelithiasis. 4. Hypertension. 5. Diabetes mellitus, type 2. 6. Gastroesophageal reflux disease. 7. Enlarged prostate as noted on CT scan followed by urology, Dr. Harrell, needing close followup in the outpatient setting. 8. Electrolyte imbalance with hyponatremia secondary to medications to include Hydrochlorothiazide and Lasix. REASON FOR HOSPITALIZATION: Mr. Rubio is a 72 year-old male patient that was admitted on 10/22/17 for an elective total right knee arthroplasty. He has a longstanding history of complaints of right knee pain. He has had a partial left knee replacement in the past. He has had a very difficult time with activities of daily living and has failed conservative measures in the outpatient setting, including injections and physical therapy. He had actually had a problem with his gait and had required assistive devices. Due to his ongoing pain and failing conservative measure treatments, he requested a total right knee arthroplasty by Dr. Conner Prater, orthopedic surgeon. He was admitted and seen postoperatively after a total right knee arthroplasty. He was admitted to the floor in stable condition on postoperative day zero. LABORATORY STUDIES: White count on admission was 8,300, at discharge was 7, 000. Hemoglobin and hematocrit were stable and at discharge was 12.5 and 37.4, platelet count 230,000. Differential showed to be within normal limits. Coagulation studies showed normal PT and PTT. Chemistries on admission showed a mild hyponatremia at 134 with BUN 28, creatinine 1.11, calcium 10.1. Blood sugars were well controlled between 122 to 212. At discharge, he still had a hyponatremia at 131, normal potassium at 4.2, BUN 28, creatinine 1.25. Liver functions were all within normal limits. Urinalysis showed a small amount of blood, small amount of leukocyte esterase with microscopic showing 5 to 10 RBCs , zero epithelials with rare bacteria. MICROBIOLOGY : Urine culture showed no growth at 48 hours. He had a flu swab by PCR that was negative for both A and B. Two sets of blood cultures showed negative for growth at 3 days. MRSA surveillance culture showed no growth of MRSA after 72 hours. RADIOLOGY: Postoperative care, he had a chest CT and abdominal and pelvis CT. Chest CT without contrast showed evidence of granulomatous disease with probable calcified lymph nodes in the right upper quadrant rather than cystic duct calcifications as well as cholelithiasis without any evidence of gallbladder wall thickening or surrounding inflammation. There is also note of colon diverticulitis without any CT evidence of diverticulitis along with an enlarged prostate with a hypodense area of superior right aspect measuring 5.1 to 5.9. Please see that CT for full details as well as the abdominal/pelvis CT with the same findings. He also had an abdominal x-ray on 10/25/17 and per radiology interpretation showed nonspecific abdominal gas pattern, nonspecific air-filled colon noted. MEDICAL CONSULTATION: Dr. Martin for cholelithiasis. Please see his medical consultation for full details. HOSPITAL COURSE: Mr. Rubio was admitted as noted on 10/22/17 for elective total right knee. He was seen postoperatively and followed through his physical therapy and rehabilitation efforts. He had no complicating episodes. He did well with his physical therapy and on date of discharge he was felt to have progressed well enough to continue with outpatient treatment with [facility]. The CT findings were discussed with Dr. Ro by hospitalist, Jennifer Ramey. Review of previous CT's noted that the prostate had been enlarged on previous CT findings with similar size. The patient is having no complications as well as he had a previous workup for gallstones in the past as well. Those CT reports again were discussed with both Dr. Martin and Dr. Ro. PLAN: Mr. Rubio was discharged on 10/26/17 with instructions to followup with Dr. Prater as scheduled as well as to followup with Dr. Ro on 11/05/17 at 1400. He was to follow a diet as instructed which included a no fat , low cholesterol diet and to followup with Dr. Martin after completing rehabilitation and physical therapy for gallstones, or sooner if any concerning symptoms occurred. He is to resume his home medications as instructed. He will return to the hospital should any concerning symptoms. CT reports on current hospitalization were discussed with Dr. Ro by Jennifer Ramey, hospitalist, during hospitalization. Activity is per Physical Therapy and [facility] as tolerated and to walk with a walker. Wound management was as per Dr. Prater's instructions. Diet was diabetic diet with low fat again if possible. Prescriptions at discharge included: 1. [place] , prescription written by Dr. Prater. 2. Xarelto 10 mg for 8 days daily. 3. Bactrim DS 1 every 12 hours for 7 days for treatment of underlying urinary tract infection. Condition on discharge was stable and improved. [facility][id number] [facility]
== END 2017-10-26 16:50 | disposition home health service (06) | DRG 470 ==
LOC: AMB 05:44 → MS 11:30
PROVIDERS: ADMIT Orthopaedic Surgery; ATTEND Nurse Practitioner Acute Care
PROC: 0SRC0J9 Replacement of Right Knee Joint with Synthetic Substitute, Cemented, Open Approach (ICD-10-PCS; principal; 2017-10-22 07:00)
DX: M17.11 Unilateral primary osteoarthritis, right knee (principal); N39.0 Urinary tract infection, site not specified; E87.1 Hypo-osmolality and hyponatremia; K80.20 Calculus of gallbladder without cholecystitis without obstruction; I10 Essential (primary) hypertension; K21.9 Gastro-esophageal reflux disease without esophagitis; N40.0 Benign prostatic hyperplasia without lower urinary tract symptoms; T50.2X5A Adverse effect of carbonic-anhydrase inhibitors, benzothiadiazides and other diuretics, initial encounter; T50.1X5A Adverse effect of loop [high-ceiling] diuretics, initial encounter; K57.30 Diverticulosis of large intestine without perforation or abscess without bleeding; Z66 Do not resuscitate; M23.8X1 Other internal derangements of right knee; E11.40 Type 2 diabetes mellitus with diabetic neuropathy, unspecified; Z86.73 Personal history of transient ischemic attack (TIA), and cerebral infarction without residual deficits; Z79.82 Long term (current) use of aspirin; Z90.5 Acquired absence of kidney; I25.2 Old myocardial infarction; Z87.891 Personal history of nicotine dependence

== ENCOUNTER → 2017-12-10 | Outpatient (CLI) | payer MEDICARE, MEDICAID | LOC: GMAM 17:33 | PROVIDERS: ATTEND Family Medicine | DX: Z12.5 Encounter for screening for malignant neoplasm of prostate (principal) ==

== ENCOUNTER → 2017-12-26 | Outpatient (CLI) | payer MEDICARE, MEDICAID ==
--- NOTE | 2017-12-26 11:43 | MAM ---
EXAM DESCRIPTION: 3D Diagnostic, Bilateral: Digital Mammography CLINICAL HISTORY: 72 yearsMaleLUMP LEFT BREAST . Lump behind left nipple and minimally tender.. No family history breast cancer. Total knee arthroplasty 2 months ago, pain medication and antibiotics. COMPARISON: Baseline study at this facility.. No prior reports available. Targeted bilateral breast ultrasound following this examination. Report from prior examination also reviewed. TECHNIQUE: Bilateral CC LM MLO projection full-field images, 3-D tomosynthesis digital mammographic technique. CAD not utilized. FINDINGS: The breast parenchymal density pattern is: Almost entirely fatty. No skin thickening or nipple retraction dense tissue in the retroareolar breast bilaterally more left mid right. No focal, stellate mass or density, focal asymmetry , and no suspicious microcalcifications right breast. ULTRASOUND: Scanning retroareolar breast tissue bilaterally. Microcalcifications may be on the skin around the nipples bilaterally. Hypoechoic tissue more prominent on the left than right. Most likely gynecomastia. No distinct solid mass or cyst. No large calcifications parenchymal edema. No overlying skin changes or abnormal Doppler vascularity. IMPRESSION: BI-RADS CATEGORY: 3 - PROBABLY BENIGN. Management: Short interval (6-month) follow-up or continued clinical surveillance. The FINDINGS and the FOLLOW-UP plan were reviewed in person with the patient after the examination. Written communication explaining the IMPRESSION and FOLLOW-UP will be mailed to the patient and referring care provider. Electronically signed by: Jostin Mason MD 12/26/2017 11:42 AM CDT
--- NOTE | 2017-12-26 17:02 | US ---
EXAM DESCRIPTION: Breast,Bilateral: Ultrasound CLINICAL HISTORY: 72 yearsMaleBREAST LUMP COMPARISON: Digital 3-D tomosynthesis diagnostic bilateral mammography on this visit. TECHNIQUE: Transcutaneous scanning of the bilateral breasts utilizing aleman-scale and Doppler modes. Scanning performed by the haul driver and Dr. Mason. FINDINGS: Scanning retroareolar breast tissue bilaterally. Microcalcifications may be on the skin around the nipples bilaterally. Hypoechoic tissue more prominent on the left than right. Most likely gynecomastia. No distinct solid mass or cyst. No large calcifications parenchymal edema. No overlying skin changes or abnormal Doppler vascularity. IMPRESSION: 1. Bi-Rads Category 3: Probably Benign Findings. 2. Please refer to bilateral 3-D tomosynthesis diagnostic mammographic examination and report on this visit. The FINDINGS and the FOLLOW-UP plan were reviewed in person with the patient after the examination. Written communication explaining the IMPRESSION and FOLLOW-UP will be mailed to the patient and referring care provider. Electronically signed by: Jostin Mason MD 12/26/2017 5:00 PM CDT
--- NOTE | 2017-12-27 11:09 | NM ---
EXAM DESCRIPTION: Hepatobiliary w/CCK: Nuclear Medicine. CLINICAL HISTORY: CHOLELITHIASIS COMPARISON: CT abdomen and pelvis 10/24/2017. TECHNIQUE: Patient was given 8.6 mCi of technetium 99 M mebrofenin radiopharmaceutical IV. Anterior gamma camera images were obtained of the right upper quadrant at 1 minute intervals for one hour . The patient was then given 16 ounces ensure plus fatty meal orally (11 g of fat.) Gallbladder ejection fraction was evaluated by measuring diminishing radioactivity in the gallbladder, over 30 min interval. FINDINGS: Immediate visualization of the entire liver after administration of radiopharmaceutical IV. No focal regions of increased or decreased activity. Timely visualization of intrahepatic and extrahepatic biliary ducts, gallbladder, and small bowel. Symptoms were not reproduced after oral fatty meal was given. Gallbladder decrease in radiopharmaceutical activity over almost 30 minutes after fatty meal was given. Decrease in percentage of activity during this time was 38.4%. IMPRESSION: 1. No intrahepatic or extra hepatic biliary dilatation. No focal hepatic defects. Timely visualization of gallbladder and small bowel. 2. Gallbladder ejection fraction is in the low-normal range. Symptoms were not reproduced when fatty meal was administered orally. Electronically signed by: Jostin Mason MD 12/27/2017 11:08 AM CDT
== END ==
LOC: MAMMO 10:00 → EEVIPCON 10:00
PROVIDERS: ATTEND Surgery
DX: N63.42 Unspecified lump in left breast, subareolar (principal); K80.10 Calculus of gallbladder with chronic cholecystitis without obstruction
CPT/HCPCS: 76641; 77066; 78227; A9537; G0279

== ENCOUNTER → 2018-03-11 | Outpatient (CLI) | payer MEDICARE, MEDICAID ==
--- NOTE | 2018-03-11 18:15 | MRI ---
EXAM DESCRIPTION: Cervical Spine CLINICAL HISTORY: M47.12 neck pain, left-sided arm pain COMPARISON: None Available. TECHNIQUE: MRI of the cervical spine is performed according to our usual protocol. FINDINGS: Sagittal T2 images reveal decreased signal intensity within the intervertebral discs consistent with disc desiccation. Normal T2 appearance of the cervical cord. Posterior discal abnormalities are most prominent at the C3-4 C5-6 and C6-7 levels. Sagittal T1 images show benign marrow signal characteristics. Normal T1 appearance of the cervical and upper thoracic spinal cord. Normal alignment of the vertebral bodies and facets. Sagittal STIR images are negative for high signal intensity marrow edema within the vertebral bodies or posterior elements, other than around degenerated disks at C4-5 through C6-7. No paraspinous fluid collection or cystic lesion. Axial images were obtained to evaluate the disc levels. C2-3: Mild prominence of the posterior disc margin with no spinal stenosis or neural foraminal narrowing. Moderate facet degenerative spurring. Normal appearance of the cord at this level. C3-4: Mild posterior annular bulge without spinal stenosis. Widely patent right neural foramen with mild left neural foraminal narrowing. Facet degenerative changes are moderate, left more than right, with mild left uncovertebral joint spurring. Normal appearance of the cord at this level. C4-5: No significant annular bulge or spinal stenosis. There is moderate left neural foraminal narrowing related to facet degenerative changes and uncovertebral joint spurring. Normal appearance of the cord at this level. C5-6: Moderate diffuse posterior disc/osteophyte complex without spinal stenosis. There is moderate right and mild left neural foraminal narrowing related to facet and uncovertebral joint spurring. Normal appearance of the cord at this level. C6-7: Mild diffuse posterior disc/osteophyte complex is seen with left lateral accentuation. Moderate facet spurring is present with moderate left uncovertebral joint spurring causing severe left neural foraminal narrowing. Right neural foramen appears widely patent. Cord is normal in appearance at this level. C7-T1: Normal posterior disc margin with no spinal stenosis or neural foraminal narrowing. Facets appear normal. Normal appearance of the cord at this level. T1-T2: Sagittal images show posterior disc protrusion which measures 3.5 mm in AP dimension with slight extension cephalad behind the lower portion of the T1 vertebral body. Craniocaudal extent measures 7 mm. No spinal stenosis or cord compression. No extension into the neural foramina. This is consistent with a small midline disc herniation. IMPRESSION: Chronic appearing posterior disc/osteophyte complexes without high-grade spinal stenosis. Left neural foraminal narrowing of moderate severity at C4-5 and C6-7 with right-sided neural foraminal narrowing at C5-6. Sagittal images indicate small midline disc herniation at T1-T2 as described. Electronically signed by: William Hutton MD 03/11/2018 6:14 PM CDT
--- NOTE | 2018-03-11 18:25 | MRI ---
EXAM DESCRIPTION: Lumbar Spine w/o Contrast CLINICAL HISTORY: M48.062 low-back pain COMPARISON: None Available. TECHNIQUE: MRI of the lumbar spine is performed according to our usual protocol with axial and sagittal multi sequence imaging. FINDINGS: Sagittal T2 images reveal decreased signal intensity consistent with desiccation of the intervertebral discs at all lumbar levels. Posterior annular bulges are mild. No prevertebral mass or aneurysm. Lower cord and conus appear normal. Tip of the conus is behind upper L1. Old vertebral compression of L1 shows 50% loss of height. Sagittal T1 images reveal benign marrow signal characteristics. Normal T1 signal intensity and appearance of the lower cord and conus. Vacuum disc phenomenon at T12-L1. No significant spinal canal compromise with only minimal healed retropulsed portion of the upper posterior vertebral margin. Sagittal STIR images are negative for marrow edema within the vertebral bodies or posterior elements. No paraspinous fluid collection or cystic lesion. Axial T1 and T2-weighted images were obtained to evaluate the disc levels. T12-L1: No posterior annular bulge or herniation. No spinal stenosis or neural foraminal narrowing. Facets appear normal. No spinal canal compromise. Normal appearance of the lower cord and conus. L1-2: Mild posterior annular bulge with slight accentuation right lateral. No spinal stenosis or significant neural foraminal narrowing. Facets appear hypertrophied. L2-3: Moderate diffuse posterior annular bulge with mild bilateral lateral accentuation. No spinal stenosis or significant neural foraminal narrowing. Facets appear hypertrophied with moderate subarticular recess narrowing left more than right. There is increased fluid in the facet joints with ligamentum flavum thickening left more than right. L3-4: Mild diffuse posterior annular bulge without focal herniation. No spinal stenosis or significant neural foraminal narrowing. Facet hypertrophy is present with ligamentum flavum thickening causing moderately severe narrowing of subarticular recesses bilaterally. L4-5: Moderate diffuse posterior annular bulge without focal herniation. No significant spinal stenosis. There is mild right and moderate left neural foraminal narrowing. Marked facet hypertrophic spurring is seen with thickened ligamentum flavum causing severe narrowing of the bilateral subarticular recesses partially compressing descending L5 nerve roots. Increased fluid in the facet joints is seen. There is upper lateral recess compromise and mild degree. L5-S1: Mild diffuse posterior annular bulge without significant spinal stenosis. There is moderately severe right neural foraminal narrowing with mild to moderate neural foraminal narrowing on the left. Facet spurring is prominent with increased fluid in the facet joints and significant ligamentum flavum thickening. There is severe narrowing of subarticular recesses bilaterally with moderate right more than left lateral recess compromise involving the descending S1 nerve roots. Upper sacrum appears intact. No retroperitoneal mass or aneurysm. Left kidney is surgically absent or ectopic. IMPRESSION: Negative for acute disc herniation or significant spinal stenosis. Old L1 compression with 50% loss of height. Multilevel anterior bulges with marked facet degenerative changes causing subarticular recess and neural foraminal compromise at levels noted above. Electronically signed by: William Hutton MD 03/11/2018 6:23 PM CDT
== END ==
LOC: MRI 13:18
PROVIDERS: ATTEND Neurological Surgery
DX: M47.12 Other spondylosis with myelopathy, cervical region (principal); M51.24 Other intervertebral disc displacement, thoracic region; M48.062 Spinal stenosis, lumbar region with neurogenic claudication; M51.26 Other intervertebral disc displacement, lumbar region

== ENCOUNTER → 2018-05-09 | Outpatient (CLI) | payer MEDICARE, MEDICAID ==
--- NOTE | 2018-05-09 11:22 | RAD ---
EXAM DESCRIPTION: Shoulder,Left 2 or More Views CLINICAL HISTORY: 72 years Male, PAIN IN LEFT SHOULDER COMPARISON: None. FINDINGS: Four views of the left shoulder show no acute fracture or malalignment. There are mild degenerative changes in left AC joint without significant undersurface spurring. The glenohumeral joint space appears relatively well maintained. There are calcifications in the aortic arch. No additional soft tissue abnormality. IMPRESSION: Degenerative changes in left AC joint, otherwise unremarkable exam. Electronically signed by: Ozzy Casiano MD 05/09/2018 11:20 AM CDT
== END ==
LOC: RAD 09:58
PROVIDERS: ATTEND Orthopaedic Surgery
DX: M25.512 Pain in left shoulder (principal); M12.812 Other specific arthropathies, not elsewhere classified, left shoulder

== ENCOUNTER → 2018-07-22 | Outpatient (CLI) | payer MEDICARE, MEDICAID ==
--- NOTE | 2018-07-22 21:14 | US ---
EXAM DESCRIPTION: Breast,Bilateral: Ultrasound CLINICAL HISTORY: 72 yearsMaleLT BREAST MASS COMPARISON: Bilateral targeted breast ultrasound 12/26/2017. TECHNIQUE: Transcutaneous scanning of the bilateral retroareolar breasts utilizing aleman-scale and Doppler modes. Scanning performed by the air saw operator and Dr. Mason. FINDINGS: Irregular acoustic shadowing is noted more in the retroareolar left breast compared to the retroareolar right breast. There is an intermediate soft tissue density versus mass with lobulated margins in the retroareolar left breast measuring approximately 10.6 x 7.9 x 2.5 mm. Nonvascular. Wider than tall orientation with mixed posterior acoustic features. Most likely benign tissue. No large calcifications or parenchymal edema in either breast. No distinct cysts. No overlying skin changes. No abnormal vascularity. IMPRESSION: BI-RADS CATEGORY: 3 - PROBABLY BENIGN. Management: Short interval (6-month) targeted bilateral ultrasound.. The FINDINGS and the FOLLOW-UP plan were reviewed in person with the patient after the examination. Written communication explaining the IMPRESSION and FOLLOW-UP will be mailed to the patient and referring care provider. Electronically signed by: Jostin Mason MD 07/22/2018 9:13 PM [facility]
== END ==
LOC: US 13:41
PROVIDERS: ATTEND Surgery
DX: N63.42 Unspecified lump in left breast, subareolar (principal)

== ENCOUNTER → 2019-07-10 | Outpatient (CLI) | payer MEDICARE, MEDICAID ==
--- NOTE | 2019-07-13 09:34 | CT ---
EXAM DESCRIPTION: Abdoment/Pelvis w/o Contrast: Computed Tomography. CLINICAL HISTORY: 73 years Male LEFT RENAL CANCER COMPARISON: CT scan of the chest abdomen and pelvis October 2017. TECHNIQUE: Spiral-axial scans 2.5 x 2.5 mm intervals through the abdomen and pelvis without oral or IV contrast. Coronal and sagittal 2.0 x 2.0 mm reconstructions. Total Exam DLP: 1168.20 mGy-cm. This exam was performed according to our departmental CT dose-optimization program which includes automated exposure control, adjustment of the mA and/or kV according to patient size and/or use of iterative reconstruction technique; to reduce radiation dose to as low as reasonably achievable (ALARA). Limited evaluation of soft tissue organs due to lack of IV contrast. FINDINGS: Lung bases and pleura: Bibasilar pleural-parenchymal scarring. Mosaic densities in the lower lobes. Atelectasis lateral dependent base right lower lobe. Bibasilar pleural thickening. Liver, stomach, spleen, and adrenal glands: Stomach distended with fluid and radiodense food. Small hiatal hernia. Other organs are unremarkable. Pancreas, Gallbladder, and Ducts: Cholelithiasis of the gallbladder is stable. Stable calcifications posterior to the portal vein.. Pancreas, gallbladder negative. Kidneys and Ureters: Prior left nephrectomy with surgical hardware in the left renal fossa. No fluid or mass. Right kidney is unremarkable. Normal caliber of the right ureter. Mesentery: No free air or fluid. No fatty stranding. Aorta: Moderate atherosclerotic calcifications including the ostia of the major branch vessels. Small Bowel: Negative. Terminal Ileum/Cecum: Minimal distention of the cecum with fecal material and gas. Normal caliber TI and appendix. No inflammatory changes or adenopathy. Colon: Mostly gas throughout. Fecal material distal descending colon and sigmoid colon which is minimally redundant. Diverticula with no complications. Pelvic Organs: Enlarged prostate gland impressing on the base of the urinary bladder with bladder wall thickening. Largest prostate dimensions in the transverse plane are 4.9 x 5.7 cm. Similar size on the prior study. Low density superior anterior right lateral prostate gland interpreted to be related to lobulated capsule of the gland. No free fluid. Calcification stable between the inferior left psoas muscle and a loop of small bowel. Spine and Bony Pelvis: Spondylosis at multiple levels of the lumbar spine most significant at L4-5 and L5-S1, has progressed since the prior study. Stable compression of L1 vertebral body and calcification in the T12-L1 disc space. Multiple levels of spondylosis in the included thoracic vertebra with anterior ankylosis. Bilateral arthrosis of the SI joints more on the right. Bilateral narrowing of the joint spaces. Stable since the prior study. Minimal thoracolumbar scoliosis stable. Abdominal Wall/Back Soft Tissues: Small left fatty inguinal hernia unchanged. Thinning of the midline abdominal raphe above and below the umbilicus also stable. IMPRESSION: 1. Left nephrectomy for renal cancer, with no recurrent mass or fluid is the prior study. Right kidney and ureter are unremarkable. 2. Small gastric belkys hernia not well seen on the prior study. 3. Prosthetic enlargement unchanged with bladder wall thickening. Distal colonic diverticulosis stable with no complications. Thoracolumbar scoliosis and spondylosis is progressed slightly since the prior study. Electronically signed by: Jostin Mason MD 07/13/2019 9:32 AM [facility]
== END ==
LOC: CT 13:30
PROVIDERS: ATTEND Urology
DX: Z85.528 Personal history of other malignant neoplasm of kidney (principal); Z90.5 Acquired absence of kidney; K44.9 Diaphragmatic hernia without obstruction or gangrene; K57.30 Diverticulosis of large intestine without perforation or abscess without bleeding; M41.85 Other forms of scoliosis, thoracolumbar region; M47.895 Other spondylosis, thoracolumbar region; N40.0 Benign prostatic hyperplasia without lower urinary tract symptoms; N32.89 Other specified disorders of bladder

== ENCOUNTER → 2020-01-28 | Outpatient (CLI) | payer MEDICARE, MEDICAID ==
--- NOTE | 2020-01-29 14:30 | MRI ---
EXAM DESCRIPTION: Brain w/o Contrast: MRI. CLINICAL HISTORY: PRIMARY THUNDERCLAP HEADACHE COMPARISON: None. TECHNIQUE: Multiplanar, high-field MRI unit, multiple diffusion sequences, multiple conventional sequences without contrast. FINDINGS: Bilateral multiple hyperintense foci of FLAIR and T2-weighted signal in the periventricular white matter and aleman/sub-cortical white matter junctions extending into the superior garcia radiata bilaterally and centrum semiovale. Other focal lesions also abutting the frontal horn of the left lateral ventricle . No hemorrhage, no cerebral edema, no midline shift.. Focal hypointense lesion in the left basal ganglia on T1 FLAIR and diffusion sequences. Hyperintense on T2 and T2 star images. Remainder of the signal in the basal ganglia is unremarkable.. no hemorrhage, no cerebral edema, no mass-effect normal signal in the brainstem and cerebellar hemispheres. Concordance of the diffusion and non-diffusion sequences with no diffusion restriction. Cortical sulci, ventricles, and other CSF spaces, and the subdural spaces are normally configured for the patient's age. No effacement or displacement. No midline shift. No extra-axial hemorrhage. Normal flow signal void in the major vessels of the akhiok Mccoy, and the venous sinuses. IACs are symmetric bilaterally. Normal signal in the bilateral mastoid air cells. No mass effect in the bilateral cerebellopontine angles. Pituitary gland occupies less than 50% of the sella. Base of the cerebellar tonsils is at the level of the foramen magnum. Air-fluid level in the inferior right maxillary antrum. Polyp or cyst in the anterior base of the left maxillary antrum. Diffuse mucoperiosteal thickening possibly fluid anterior ethmoid air cells. The bony calvarium is intact. IMPRESSION: 1. Chronic periventricular white matter lesions most likely related to age and or cerebral microvascular disease. 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 No hemorrhage, no cerebral edema, no mass effect. No abnormal fluid or extra-axial hemorrhage. 2. Normal noncontrast brain diffusion MRI scan with no evidence of significant ischemia, acute or subacute infarction. 3. Chronic and acute findings in the paranasal sinuses. Electronically signed by: Jostin Mason MD 01/29/2020 2:28 PM CDT
== END ==
LOC: MRI 11:30
PROVIDERS: ATTEND Nurse Practitioner
DX: G44.53 Primary thunderclap headache (principal); R90.82 White matter disease, unspecified; I63.89 Other cerebral infarction; J34.9 Unspecified disorder of nose and nasal sinuses

== ENCOUNTER → 2020-07-25 | Outpatient (CLI) | payer MEDICARE, MEDICAID ==
--- NOTE | 2020-07-26 08:17 | CT ---
EXAM: Abdoment/Pelvis w/o Contrast CLINICAL HISTORY: LEFT RENAL CANCER F/U COMPARISON STUDY: CT abdomen and pelvis from July 10, 2019 TECHNIQUE: Non-oral, non-IV contrast CT images were obtained through the abdomen and pelvis. Coronal and sagittal reconstructions were acquired. FINDINGS: The visible portion of the chest shows clear lungs. The heart is not enlarged. The aorta is non-dilated. There is diffuse thickening of the distal esophageal alejandra. Solid organ evaluation is limited without IV contrast administration. The unenhanced images of the liver, spleen, pancreas, adrenal glands and right kidney demonstrate no visible abnormality. The left kidney has been removed. There is no sign of recurrent or residual mass. No retroperitoneal lymphadenopathy. The gallbladder is present and contains calcified gallstones without evidence cholecystitis. Calcified right upper quadrant lymph nodes are unchanged. Bowel evaluation is limited without oral contrast administration. There is no bowel obstruction/dilatation. Sigmoid diverticula are present. The appendix is visible and negative. There are no mesenteric inflammatory changes. The prostate gland is enlarged and has mass effect on the urinary bladder. The bladder alejandra are mildly thickened. Moderate diffuse degenerative changes of the lumbar spine. A mild compression fracture of the L1 vertebral body is unchanged. No acute osseous abnormality. CONCLUSION: 1. Status post left nephrectomy with no recurrent or residual mass. 2. Cholelithiasis without evidence of cholecystitis. 3. Diffuse thickening of the distal esophageal alejandra is most suggestive of reflux esophagitis. Rojas's esophagus is a possibility. 4. Prostatomegaly. 5. Mild diverticulosis. 6. Degenerative changes of the lumbar spine and old L1 compression deformity. This exam was performed according to our departmental dose-optimization program, which includes automated exposure control, adjustment of the mA and/or kV according to patient size and/or use of iterative reconstruction technique. . Electronically signed by: Andrés Preciado MD 07/26/2020 8:16 AM [facility]
== END ==
LOC: CT 14:16
PROVIDERS: ATTEND Urology
DX: Z85.528 Personal history of other malignant neoplasm of kidney (principal); Z90.5 Acquired absence of kidney; K80.21 Calculus of gallbladder without cholecystitis with obstruction; K22.9 Disease of esophagus, unspecified; N40.0 Benign prostatic hyperplasia without lower urinary tract symptoms; K57.30 Diverticulosis of large intestine without perforation or abscess without bleeding; M47.896 Other spondylosis, lumbar region; M48.56XS Collapsed vertebra, not elsewhere classified, lumbar region, sequela of fracture

== ENCOUNTER → 2020-07-28 | Outpatient (CLI) | payer MEDICARE, MEDICAID ==
--- NOTE | 2020-07-28 18:27 | RAD ---
XR HIP 2 OR MORE VIEWS, XR PELVIS 1-2 VIEWS HISTORY: 74 years Male PAIN IN LEFT HIP COMPARISON: June 24, 2014; CT abdomen and pelvis dated July 25, 2020. TECHNIQUE: AP neutral and frog-leg views of the left hip as well as a single AP view the pelvis. FINDINGS: Sacrum predominantly observed secondary to superimposed bowel gas. No acute fracture or dislocation observed. Moderate narrowing of hip joint space bilaterally. Mild osteophytosis at the hip joints. Included overlying soft tissues demonstrate no acute process. IMPRESSION: No acute osseous abnormality observed within the pelvis or left hip. Electronically signed by: Terence Win MD 07/28/2020 6:26 PM [facility]
== END ==
LOC: RAD 10:07
PROVIDERS: ATTEND Orthopaedic Surgery
DX: M25.552 Pain in left hip (principal)